=== PATIENT | female | born 1950 | race Caucasian/White ===

== ENCOUNTER 2017-06-16 14:16 | Observation (INO) | payer BC ==
[2017-06-16] MEDS ORDERED: Sodium Chloride 0.9% 10 ML FLUSH Syringe IV PRN (14:43)
[2017-06-16] MEDS: XARELTO 10 MG TABLET PO SCH ×2 (15:07→22:03)
[2017-06-16] MEDS ORDERED: Protonix 40MG Tablet PO PRN (16:13)
[2017-06-16] MEDS ORDERED: MEDICATION INTERVENTION MC PRN (16:24)
[2017-06-16] MEDS: Sodium Chloride 0.9% 10 ML FLUSH Syringe IV SCH (19:53)
[2017-06-17 08:35] VITALS: PULSE 69
[2017-06-17] MEDS: Sodium Chloride 0.9% 10 ML FLUSH Syringe IV SCH (08:52)
[2017-06-17] MEDS: XARELTO 10 MG TABLET PO SCH (08:52)
--- NOTE | 2017-06-17 08:52 | PCM.SSS ---
History of Present Illness - Chief Complaint Chief Complaint: DVT RLE History of Present Illness: is a 66 year old female who came to the office c/o 3 weeks of LLE edema. She had been to [facility] and said they didn't think it was a blood clot. She had been standing a lot at her job. She was found to have a DVT and was admitted and put on po xarelto. No issues overnight. This morning she remembers that prior to the edema starting, she had gone on a car trip to [place]. No FHx DVT, no personal hx DVT. - Review of Systems Respiratory: No Short Of Breath Cardiac: No Chest Pain Musculoskeletal: Other (LLE edema; mild tenderness initially but none now) All Other Systems: Reviewed and Negative Medications & Allergies Home Medications: Home Medication List Bisoprolol Fumarate/Hctz [Ziac 10-6.25 mg Tablet] 1 each PO DAILY 07/21/13 [ History Confirmed 06/16/17] Multivitamin with Minerals [Multi-Vit 55 Plus] 1 each PO DAILY 07/21/13 [ History Confirmed 06/16/17] Esomeprazole Magnesium [Nexium] 40 mg PO DAILY PRN 10/27/16 [History Confirmed 06/16/17] Raloxifene HCl 60 mg [Evista 60 MG] 60 mg PO DAILY 10/27/16 [History Confirmed 06/16/17] Calcium Carbonate/Vitamin D3 [Caltrate 600 Plus D3 Tablet] 1 each PO DAILY 06/16 [History Confirmed 06/16/17] Om-3/Epa/Dha/Fish Oil/Flax/E [Thera Tears Nutrition Capsule] 1 each PO DAILY [History Confirmed 06/16/17] Rivaroxaban 10 mg Tablet [Xarelto 10 mg Tablet] 15 mg PO BID #42 tablet [Rx] Allergies/Adverse Reactions: Allergies Allergy/AdvReac Type Severity Reaction Status Date / Time Latex, Natural Rubber Allergy Rash Verified 06/16/17 14:44 - Past Medical History Past Medical History: Yes Neurological History: No Pertinent History ENT History: Cataracts Cardiac History: Deep Vein Thrombosis, Hypertension Respiratory History: No Pertinent History Endocrine Medical History: No Pertinent History Musculoskelatal History: Arthritis, Fractures, Osteoporosis, Other GI Medical History: GERD History: No Pertinent History Pyscho-Social History: No Pertinent History Reproductive Disorders: Abnormal Uterine Bleeding, Fibroids - Female History Are you now?: No - Past Surgical History Past Surgical History: Yes Neuro Surgical History: No Pertinent History Cardiac History: No Pertinent History Respiratory Surgery: No Pertinent History GI Surgical History: Appendectomy Genitourinary Surgical Hx: No Pertinent History Musculskeletal Surgical Hx: Other Female Surgical History: Hysterectomy Other Surgical History: Bunion removal right foot 2010, 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 - Social History Smoking Status: Never smoker Exposure to second hand smoke: No Alcohol: None Drug Use: none - Physical Exam Vital Signs: Vital Signs - 24 hr Temp Pulse Resp BP Pulse Ox 06/17/17 08:00 98.6 F 69 17 136/64 96 06/17/17 04:00 97.9 F 76 15 138/76 93 L 06/17/17 00:00 98.6 F 69 16 133/62 94 L 06/16/17 19:53 98.4 F 78 18 128/70 93 L 06/16/17 19:15 18 06/16/17 16:00 98.4 F 79 18 119/63 95 06/16/17 15:28 98.4 F 79 18 119/63 95 06/16/17 14:42 98.4 F 79 119/63 06/16/17 14:38 98.4 F 79 18 119/63 95 General Appearance: no apparent distress Neurologic Exam: alert, oriented x 3, cooperative Eye Exam: eyes nml inspection Ears, Nose, Throat Exam: moist mucous membranes Neck Exam: normal inspection, non-tender, supple, No lymphadenopathy Respiratory Exam: normal breath sounds, lungs clear, No crackles/rales, No rhonchi, No wheezing Cardiovascular Exam: regular rate/rhythm, normal heart sounds, No murmur Gastrointestinal/Abdomen Exam: No distention Back Exam: normal inspection Extremity Exam: other (L lower leg grossly edematous to the knee, trace pitting. Trace pitting RLE. LLE completely nttp throughout, neg Leroy's , no erythema.) Skin Exam: normal color, warm, dry Assessment/Plan (1) DVT (deep venous thrombosis) Current Visit: No Status: Acute Qualifiers: DVT location: lower extremity Affected thrombotic vein of extremity: femoral Chronicity: acute Laterality: left Qualified Code(s): I82.412 - Acute embolism and thrombosis of left femoral vein Assessment & Plan: Pt doing well on xarelto, will make sure it is covered before sending her home. Discussed increased risk of bleeding with xarelto; pt is to go to ER if any head injury or GI bleeding. Pt also to go to ER for any chest pain or shortness of breath, discussed rationale for blood thinner treatment (avoiding PE). Discussed that it may take months for the DVT to resolve and the swelling may be chronic now. Use MAURICIO hose. Avoid sitting for more than 2 hours without a break. When standing, pt should be allowed access to a stool or chair as needed. F/u wiht me in office in 1-2 weeks. Would plan hypercoaguability workup in 6 mo or so. Code(s): I82.409 - ACUTE EMBOLISM AND THOMBOS UNSP DEEP VN UNSP LOWER EXTREMITY Hospital Summary - Hospital Course Hospital Course: Pt admitted with DVT, placed on xarelto. Doing great and will be discharged to home on xarelto. - Vitals & Intake/Output Vital Signs: Vital Signs Temperature 98.6 F 06/17/17 08:00 Pulse Rate 69 06/17/17 08:00 Respiratory Rate 06/17/17 08:00 Blood Pressure 136/64 06/17/17 08:00 O2 Sat by Pulse Oximetry 96 06/17/17 08:00 Intake & Output: Intake & Output 06/14/17 06/15/17 06/16/17 06/17/17 11:59 11:59 11:59 11:59 Intake Total 480 Balance 480 Weight 77.111 kg - Discharge Disposition: Home, Self-Care Condition: Good Prescriptions: New Rivaroxaban 10 mg Tablet [Xarelto 10 mg Tablet] 15 mg PO BID #42 tablet Continue Multivitamin with Minerals [Multi-Vit 55 Plus] 1 each PO DAILY Bisoprolol Fumarate/Hctz [Ziac 10-6.25 mg Tablet] 1 each PO DAILY Esomeprazole Magnesium [Nexium] 40 mg PO DAILY PRN PRN Reason: Stomach Upset Raloxifene HCl 60 mg [Evista 60 MG] 60 mg PO DAILY Calcium Carbonate/Vitamin D3 [Caltrate 600 Plus D3 Tablet] 1 each PO DAILY Om-3/Epa/Dha/Fish Oil/Flax/E [Thera Tears Nutrition Capsule] 1 each PO DAILY Discontinued Aspirin EC 81 mg [Ecotrin 81 mg] 81 mg PO DAILY Follow up with: DILLON SU [Primary Care Provider] - 1 Week
[2017-06-17] MEDS ORDERED: FLAX PO SCH (10:00)
[2017-06-17] MEDS ORDERED: [UNRECOGNIZED DRUG - OTHER] PO SCH (10:00)
[2017-06-17] MEDS ORDERED: BISOPROLOL FUMARATE PO SCH (10:00)
[2017-06-17] MEDS ORDERED: DHA PO SCH (10:00)
[2017-06-17] MEDS ORDERED: EPA PO SCH (10:00)
[2017-06-17] MEDS ORDERED: FISH OIL PO SCH (10:00)
[2017-06-17] MEDS ORDERED: HCTZ PO SCH (10:00)
[2017-06-17 12:04] VITALS: BP 136/72; O2SAT 93
== END 2017-06-17 13:28 | disposition home or self-care (01) ==
LOC: MED SURG 14:35
PROVIDERS: ADMIT Family Medicine; ATTEND Family Medicine
DX: I82.412 Acute embolism and thrombosis of left femoral vein (principal); I10 Essential (primary) hypertension; K21.9 Gastro-esophageal reflux disease without esophagitis; Z79.01 Long term (current) use of anticoagulants; Z85.820 Personal history of malignant melanoma of skin; Z79.899 Other long term (current) drug therapy; M81.0 Age-related osteoporosis without current pathological fracture
CPT/HCPCS: G0378; A9270-GY

== ENCOUNTER 2019-12-06 06:29 | Day surgery (SDC) | payer BC, MEDICARE ==
[2019-12-06] MEDS ORDERED: Lactated Ringers 1,000 ML IV SCH (06:30)
[2019-12-06] MEDS ORDERED: Lactated Ringers 1,000 ML IV ONE ×2 (06:42→08:11)
[2019-12-06] MEDS ORDERED: DIPRIVAN 200 MG/20 ML IV ONE ×2 (07:57→08:22)
[2019-12-06] MEDS ORDERED: Ketamine HCl 50 MG/ML ONE (08:02)
--- NOTE | 2019-12-06 09:13 | OP ---
SURGERY DATE/TIME: 12/06/2019 0800 PREOPERATIVE DIAGNOSES: 1) History of esophageal stricture. 2) History of colon polyps. POSTOPERATIVE DIAGNOSES: 1) Hiatal hernia. 2) Normal colon. PROCEDURES: 1) EGD. 2) Colonoscopy. SURGEON: Javi Wong M.D. ANESTHESIA: MAC by Will Schilling CRNA. ESTIMATED BLOOD LOSS: None. SPECIMENS: None. DESCRIPTION OF PROCEDURE: After informed written consent was obtained, the patient was taken to the endoscopy suite. She had a bite block inserted and underwent monitored anesthesia. The endoscope was inserted in the posterior oropharynx and under direct visualization the esophagus was traversed. The esophageal mucosa had a normal appearance free of any lesions or defects. There was no appreciable stricture present. The gastroesophageal junction showed moderate sized hiatal hernia but no other mucosal lesions were appreciable in the gastric cavity. The pylorus is traversed and the duodenum had a normal mucosal appearance. Upon withdrawal retroflexion was then performed and again hiatal hernia was appreciable. There were no lesions encountered upon withdrawal. The scope is removed and the scopes were switched. Digital rectal exam showed normal sphincter tone. The scope was inserted in the rectum and sequentially the entire colonic mucosa was traversed. The level of cecum was reached and verified with direct visualization of the ileocecal valve. Upon withdrawal careful mucosal inspection revealed no gross abnormalities. There were a few scattered diverticula but they were minimal. Prior to withdrawal retroflexion was performed which showed no internal lesions. The scope was removed and the patient was transferred to the recovery room in good condition.
[2019-12-06 09:46] VITALS: PULSE 87
[2019-12-06 09:58] VITALS: BP 128/73; O2SAT 79
== END 2019-12-06 10:00 | disposition home or self-care (01) ==
LOC: SDC 06:29
PROVIDERS: ATTEND Family Medicine
DX: K44.9 Diaphragmatic hernia without obstruction or gangrene (principal); Z86.010 Personal history of colon polyps; Z09 Encounter for follow-up examination after completed treatment for conditions other than malignant neoplasm; Z87.19 Personal history of other diseases of the digestive system
CPT/HCPCS: J2704

== ENCOUNTER 2023-03-24 06:35 | Day surgery (SDC) | payer BC ==
[2023-03-24] MEDS ORDERED: Lactated Ringers 1,000 ML IV SCH (07:00)
[2023-03-24] MEDS ORDERED: Versed 2 MG/2 ML Injection ONE (07:56)
[2023-03-24] MEDS ORDERED: DIPRIVAN 200 MG/20 ML IV ONE ×3 (07:56→08:21)
--- NOTE | 2023-03-24 08:48 | PCM.DCORD ---
- Discharge Disposition: Home, Self-Care Condition: Stable Prescriptions: New Omeprazole 40 mg PO DAILY #30 cap Continue Calcium Carbonate/Vitamin D3 [Caltrate 600 Plus D3 Tablet] 1 each PO DAILY Omeg3/Epa/Dha/Fish Oil/Flax/E [Thera Tears Nutrition Capsule] 1 each PO DAILY Bisoprolol/Hydrochlorothiazide [Bisoprolol-Hctz 5-6.25 mg Tab] 1 each PO DAILY Krill Oil 500 mg PO DAILY Cholecalciferol (Vitamin D3) [Vitamin D] 50,000 unit PO WEEKLY Discontinued Aspirin [Ecotrin] 81 mg PO DAILY Follow up with: DILLON TURNER [Primary Care Provider] -
[2023-03-24 09:39] VITALS: O2SAT 96
[2023-03-24 10:54] VITALS: BP 145/76; PULSE 65
--- NOTE | 2023-03-24 13:03 | OP ---
SURGERY DATE/TIME: 03/24/2023 0806 PREOPERATIVE DIAGNOSES: 1) Anemia. 2) Family history of colon cancer. POSTOPERATIVE DIAGNOSES: 1) Moderate gastritis. 2) Hiatal hernia. 3) Normal colon. PROCEDURES: 1) EGD. 2) Colonoscopy. SURGEON: Javi Wong M.D. ANESTHESIA: MAC by Marcell Paniagua CRNA. ESTIMATED BLOOD LOSS: Minimal. SPECIMENS: Two cold forceps biopsies taken from the gastric antrum. DESCRIPTION OF PROCEDURE: After informed written consent was obtained, the patient was taken to the endoscopy suite. She had a bite block inserted and anesthesia was titrated to desired level of consciousness. The endoscope was inserted in the posterior oropharynx. Under direct visualization the esophagus was traversed. Esophageal mucosa had a normal appearance. Upon entry into the gastroesophageal junction there was moderate hiatal hernia appreciable. The gastric mucosa had a normal rugated appearance with some flecks of dried blood and moderate gastritis-type changes localized in the gastric antrum. Two cold forceps biopsies were taken from this region with minimal blood loss and send for Helicobacter pylori testing. The first and second portions of the duodenum showed no obvious erosions or bleeding. The remainder of the exam was unremarkable upon withdrawal of the scope. The scope was removed and the scopes were switched. Digital rectal exam showed normal sphincter tone and no internal lesions. The scope was inserted in the rectum and sequentially the entire colonic mucosa was traversed. The level of the cecum was reached and verified with direct visualization of the ileocecal valve. Upon withdrawal careful mucosal inspection revealed no gross abnormalities. Prior to withdrawal retroflexion was performed and showed no internal lesions. The scope was removed and the patient was transferred to the recovery room in good condition.
== END 2023-03-24 10:00 | disposition home or self-care (01) ==
LOC: SDC 06:35
PROVIDERS: ATTEND Family Medicine
DX: K29.70 Gastritis, unspecified, without bleeding (principal); K44.9 Diaphragmatic hernia without obstruction or gangrene; D64.9 Anemia, unspecified; Z80.0 Family history of malignant neoplasm of digestive organs
CPT/HCPCS: 99100; J2250; J2704